=== PATIENT | female | born 1980 | race African-American/Black ===

== ENCOUNTER 2016-05-26 16:29 | Emergency (ER) | payer MEDICAID ==
[~2016-05-26] VITALS: Ht 157.5 cm; Wt 77.0 kg
[2016-05-26 16:50] VITALS: BP 126/90
[2016-05-26] MEDS ORDERED: BACITRACIN ZINC OINT UDPKT TOP ONE ×2 (18:30)
[2016-05-26] MEDS ORDERED: TETANUS, DIPHTHERIA, PERTUSSIS VAC/PF 0.5ML (>7YR OLD) IM ONE (18:30)
== END 2016-05-26 19:16 | disposition home or self-care (01) ==
LOC: ER 17:32
DX: T52.8X1A Toxic effect of other organic solvents, accidental (unintentional), initial encounter (principal); T23.521A Corrosion of first degree of single right finger (nail) except thumb, initial encounter; Y93.89 Activity, other specified; Y92.018 Other place in single-family (private) house as the place of occurrence of the external cause
CPT/HCPCS: 16000; 90471; 90715; 99284; X7700